=== PATIENT | female | born 1960 | race Caucasian/White ===

== ENCOUNTER → 2022-01-22 | Outpatient (CLI) | payer BC ==
[~2022-01-22] MED LIST: CYMBALTA 30 MG30 MG PO; OMEPRAZOLE20 MG PO; TRAMADOL HCL50 MG PO; VOLTAREN EC 7575 MG PO
[2022-01-24 07:13] LABS: HBSAG SCREEN Negative (Negative); HCV AB <0.1 (0.0-0.9); HEP A AB, IGM Negative (Negative); HEP B CORE AB, IGM Negative (Negative)
[2022-01-24 10:15] LABS: ALPHA-1-ANTITRYPSIN, SERUM 160 mg/dL (101-187)
[2022-01-24 17:11] LABS: MITOCHONDRIAL (M2) ANTIBODY <20.0 Units (0.0-20.0)
== END ==
LOC: LAB 16:34
PROVIDERS: Internal Medicine Cardiovascular Disease
DX: K76.0 Fatty (change of) liver, not elsewhere classified (principal); R16.0 Hepatomegaly, not elsewhere classified; R79.89 Other specified abnormal findings of blood chemistry
CPT/HCPCS: 36415; 80074; 80076; 82103; 82728; 83540; 83550; 86038

== ENCOUNTER → 2022-01-27 | Day surgery (SDC) | payer BC | END | disposition home or self-care (01) | LOC: OR 09:52 | DX: Z12.11 Encounter for screening for malignant neoplasm of colon (principal); K57.30 Diverticulosis of large intestine without perforation or abscess without bleeding; K64.1 Second degree hemorrhoids; K76.0 Fatty (change of) liver, not elsewhere classified; R16.0 Hepatomegaly, not elsewhere classified; R79.89 Other specified abnormal findings of blood chemistry; I10 Essential (primary) hypertension; K21.9 Gastro-esophageal reflux disease without esophagitis; M19.90 Unspecified osteoarthritis, unspecified site; Z79.899 Other long term (current) drug therapy | CPT/HCPCS: J2704; J7040 ==